=== PATIENT | female | born 1990 ===

== ENCOUNTER 2017-07-21 16:33 | Emergency (ER) | payer MEDICAID, OTHER ==
[2017-07-21 16:49] VITALS: BMI 29.2
--- NOTE | 2017-07-21 17:27 | ED PDOC ---
HPI: Abdomen Time Seen by Provider: 07/21/17 16:53 Chief Complaint (Nursing): GI Problem Chief Complaint (Provider): Dysmenorrhagia History Per: Patient Additional Complaint(s): 27 yo Female, , presents to ED currently on day 3 o her period, with heavy vaginal bleeding and cramps. Pt has been taking 400 mg Motrin PO without relief , last dosage was yesterday. Past Medical History Reviewed: Nursing Documentation, Vital Signs Vital Signs: Last Vital Signs Temp 98.5 F 07/21/17 16:48 Pulse 85 07/21/17 16:48 Resp 16 07/21/17 16:48 BP 126/79 07/21/17 16:48 Pulse Ox 100 07/21/17 17:39 - Medical History PMH: No Chronic Diseases - Surgical History Surgical History: No Surg Hx - Family History Family History: States: No Known Family Hx - Living Arrangements Living Arrangements: With Family - Social History Current smoker - smoking cessation education provided: No Alcohol: None Drugs: Denies - Allergies Allergies/Adverse Reactions: Allergies Allergy/AdvReac Type Severity Reaction Status Date / Time Penicillins Allergy RASH Verified 07/21/17 16:46 Review of Systems ROS Statement: Except As Marked, All Systems Reviewed And Found Negative Gastrointestinal: Positive for: Abdominal Pain Genitourinary Female: Positive for: Vaginal Bleeding Physical Exam - Reviewed Nursing Documentation Reviewed: Yes Vital Signs Reviewed: Yes - Physical Exam Appears: Positive for: Well, Non-toxic, No Acute Distress Head Exam: Positive for: ATRAUMATIC, NORMAL INSPECTION, NORMOCEPHALIC Skin: Positive for: Normal Color, Warm, DRY Eye Exam: Positive for: EOMI, Normal appearance, PERRL ENT: Positive for: Normal ENT Inspection Neck: Positive for: Normal, Painless ROM Cardiovascular/Chest: Positive for: Regular Rate, Rhythm Respiratory: Positive for: CNT, Normal Breath Sounds Gastrointestinal/Abdominal: Positive for: Normal Exam, Bowel Sounds, Soft. Negative for: Tenderness, Distended, Guarding Pelvic Exam: Positive for: Other (Pt deferred) Back: Positive for: Normal Inspection Extremity: Positive for: Normal ROM Neurologic/Psych: Positive for: Alert, Oriented - Laboratory Results Result Diagrams: 07/21/17 17:47 07/21/17 17:47 - ECG O2 Sat by Pulse Oximetry: 100 Medical Decision Making Medical Decision Making: IV access established and diagnostics ordered Case endorsed to SERA Valente at 1900 pending diagnostics review and re-eval CBC and COMP resulted WNL Dip and US pending Disposition - Clinical Impression Clinical Impression: Menometrorrhagia - Patient ED Disposition Is Patient to be Admitted: No - Disposition Disposition: Routine/Home Disposition Time: 18:44 Condition: STABLE Forms: [facility] (Czech) - POA Present On Arrival: None
[2017-07-21 17:56] LABS: BASO % 0.3 % (0.0-2.0); EOS # 0.1 K/uL (0.0-0.7); EOS % 0.8 % (0.0-4.0); HEMATOCRIT 39.7 % (34.0-47.0); LYMPH % 21.8 % (20.0-40.0); MEAN CELL VOLUME 87.9 fl (81.0-99.0); MEAN CORPUSCULAR HEMOGLOBIN 28.8 pg (27.0-31.0); MEAN CORPUSCULAR HGB CONC 32.7 g/dL (33.0-37.0); MEAN PLATELET VOLUME 9.1 fl (7.2-11.7); MONO # 0.5 K/uL (0.0-0.8); MONO % 5.6 % (0.0-10.0); NEUT # 6.7 K/uL (1.8-7.0); NEUT % 71.5 % (50.0-75.0); WHITE BLOOD COUNT 9.4 K/uL (4.8-10.8)
[2017-07-21 18:03] LABS: ALB/GLOB RATIO 1.3 (1.0-2.1); ALKALINE PHOSPHATASE 59 U/L (38-126); ALT/SGPT 39 U/L (9-52); AST/SGOT 23 U/L (14-36); BILIRUBIN,TOTAL 0.3 mg/dl (0.2-1.3); BLOOD UREA NITROGEN 10 mg/dl (7-17); CALCIUM 8.9 mg/dL (8.4-10.2); CARBON DIOXIDE 25 mmol/L (22-30); CHLORIDE 106 mmol/L (98-107); GFR AFRICAN-AMERICAN > 60; GLUCOSE,RANDOM 120 mg/dL (65-105); POTASSIUM 3.8 MMOL/L (3.6-5.0); SODIUM 141 mmol/l (132-148); TOTAL PROTEIN 7.6 G/DL (6.3-8.2)
--- NOTE | 2017-07-21 19:50 | US ---
EXAM: US Pelvis Complete, Transabdominal CLINICAL HISTORY: 27 years old, female; Signs and symptoms; Menstruation abnormalities; Excessive menstruation; With irregular cycle; Additional info: Pain and heavy bleeding TECHNIQUE: Real-time transabdominal pelvic ultrasound (complete) with image documentation. COMPARISON: No relevant prior studies available. FINDINGS: Uterus/cervix: Uterus measures 7.6 x 2.9 x 4.2 cm in size. 2.8 x 2.4 x 3.9 cm uterine mass. Endometrium: 0.5 cm in thickness. Right ovary: 2.9 x 1.1 x 2.9 cm in size. No mass. Normal flow. Left ovary: 1.9 x 1.4 x 2.1 cm in size. No mass. Normal flow. Free fluid: Trace free fluid within pelvis. Bladder: Unremarkable as visualized. IMPRESSION: 1. Probable fibroid.
--- NOTE | 2017-07-21 20:36 | ED PDOC ---
- Laboratory Results Result Diagrams: 07/21/17 17:47 07/21/17 17:47 - ECG O2 Sat by Pulse Oximetry: 100 - Progress ED Course And Treament: 1900 Signed out to me pending US results. 2035 Pelvic US: probable fibroid. Pt. informed of results and instructed to f[facility]u [facility] for [facility]. Disposition - Clinical Impression Clinical Impression: Menometrorrhagia, Fibroid - POA Present On Arrival: None - Disposition [facility]errals: [facility] [[facility]] [facility] [Outside] Disposition: Routine/Home Disposition Time: 20:36 Condition: STABLE Prescriptions: Naproxen [Naprosyn] 500 mg PO BID PRN #14 tab PRN Reason: Pain Instructions: Uterine Fibroids (ED) Forms: [employer] (Korean)
[2017-07-21 21:02] VITALS: BP 124/79; PULSE 70; RESP 18; TEMP 97.9; O2SAT 98
== END 2017-07-21 21:02 | disposition home or self-care (01) ==
LOC: H.ER 16:33
DX: N92.0 Excessive and frequent menstruation with regular cycle (principal); N92.1 Excessive and frequent menstruation with irregular cycle; Z88.0 Allergy status to penicillin
CPT/HCPCS: 76857; 80053; 81025; 85025; 96374; 99284; J1885; J2405